=== PATIENT | female | born 1950 | race Caucasian/White ===

== ENCOUNTER 2023-03-16 12:24 | Emergency (ER) | payer OTHER ==
[~2023-03-16] VITALS: Ht 160 cm; Wt 95.3 kg
[2023-03-16] MEDS ORDERED: METOPROLOL SUCC50 MG PO (12:45)
[2023-03-16] MEDS ORDERED: TELMISARTAN-HC1 EACH PO (12:45)
[2023-03-16] MEDS ORDERED: TERAZOSIN HCL2 M1 PO (12:45)
[2023-03-16] MEDS ORDERED: ATORVASTATIN CA10 MG PO (12:45)
[2023-03-16] MEDS ORDERED: ZOLPIDEM TARTRAT5 MG PO (12:46)
[2023-03-16] MEDS ORDERED: MEDROLPACK PO (15:43)
[2023-03-16] MEDS ORDERED: TUSNEL LIQUID178 ML PO (15:43)
[2023-03-16] MEDS ORDERED: PROAIR RESPICL90 MCG IH (15:43)
== END 2023-03-16 15:56 | disposition home or self-care (01) ==
LOC: ER 12:24
DX: R05.9 Cough, unspecified (principal); Z20.822 Contact with and (suspected) exposure to COVID-19; Z91.040 Latex allergy status; Z91.018 Allergy to other foods